=== PATIENT | female | born 1980 | race African-American/Black ===

== ENCOUNTER 2019-06-22 18:34 | Emergency (ER) | payer MEDICAID ==
[~2019-06-22] VITALS: Ht 160 cm; Wt 69.1 kg
[2019-06-22] MEDS ORDERED: ACETAMINOPHEN 500 MG TABLET PO ONE (19:15)
[2019-06-22] MEDS ORDERED: cloNIDine HCL 0.1 MG TABLET PO ONE ×2 (19:15→20:00)
[2019-06-22] MEDS ORDERED: LABE100T5 PO (19:58)
[2019-06-22 20:05] VITALS: BP 153/97
--- NOTE | 2019-06-22 22:31 | PHYS DOC ---
Past Medical History Past Medical History: Hypertension Past Surgical History: Smoking Status: Never Smoker Alcohol Use: None Adult General Chief Complaint Chief Complaint: HYPERTENSION HPI HPI Patient is a 38 year old female with history of hypertension who presents with trauma headache for the past 2 days with elevated blood pressure 190s over 100 after running out of her home blood pressure medication 3 days ago. Patient is prescribed labetalol 100 mg twice daily. Headache is described as dull, low- grade it is not worse headache of the patient's life. Did not start abruptly. Patient denies neck pain, stiffness. Chest pain, palpitations, shortness of breath, extremity weakness, loss of sensation, increased leg swelling. No fevers chills or sweats. No nausea or vomiting. No other acute symptoms or complaints. [] Review of Systems Review of Systems ROS as per HPI All other systems were reviewed and found to be within normal limits, except as documented in this note. Current Medications Current Medications Current Medications Medications (Trade) Dose Ordered Sig/Sher Start Time Stop Time Status Last Admin Dose Admin Acetaminophen (Tylenol) 1,000 mg 1X ONCE 06/22/19 19:15 06/22/19 19:16 DC 06/22/19 19:14 1,000 MG Clonidine HCl (Catapres) 0.1 mg 1X ONCE 06/22/19 20:00 06/22/19 20:01 DC 06/22/19 20:05 0.1 MG Allergies Allergies Allergies Coded Allergies Type Severity Reaction Last Updated Verified No Known Drug Allergies 06/22/19 No Physical Exam Physical Exam Constitutional: Well developed, well nourished, no acute distress. [] HENT: Normocephalic, atraumatic, bilateral external ears normal, oropharynx moist, nose normal. [] Eyes: PERRLA, EOMI, conjunctiva normal. [] Neck: Normal range of motion, no tenderness. [] Cardiovascular:Heart rate regular rhythm, no murmur [] Lungs & Thorax: Bilateral breath sounds clear to auscultation [] Abdomen: Bowel sounds normal. [] Skin: Warm, dry. [] Back: No tenderness. [] Extremities: No tenderness, no edema. [] Neurologic: Alert and oriented, normal motor function, normal sensory function, no focal deficits noted. [] Psychologic: Affect normal, judgement normal, mood normal. [] Current Patient Data Vital Signs Vital Signs Date Time Temp Pulse Resp B/P (MAP) Pulse Ox O2 Delivery O2 Flow Rate FiO2 06/22/19 20:05 85 153/97 06/22/19 19:47 99 06/22/19 19:02 98.6 18 Room Air 98.6 EKG EKG [] Radiology/Procedures Radiology/Procedures [] Course & Med Decision Making Course & Med Decision Making Pertinent Labs and Imaging studies reviewed. (See chart for details) [Blood pressure improved with treatment. Headache resolved with Tylenol. No neurologic deficits. No additional workup indicated at this time. Recommend PCP follow-up. Return precautions reviewed.] Dragon Disclaimer Dragon Disclaimer This electronic medical record was generated, in whole or in part, using a voice recognition dictation system. Departure Departure Impression: Primary Impression: Medication refill Additional Impressions: Headache Hypertension Disposition: 01 HOME, SELF-CARE Condition: GOOD Patient Instructions: Headache, FAQs, Hypertension Additional Instructions: Please fill blood pressure medication upon leaving the ED and take firts dose this evening upon returning home. Follow up with your PCP for further blood presseure management and re-evaluation of your headache. Return to the ED if new or worsening symptoms. Scripts Labetalol Hcl (LABETALOL HCL) 100 Mg Tablet 1 TAB PO BID, #60 TAB Prov: VERONICA PERRY DO 06/22/19 Problem Qualifiers VERONICA PERRY DO Jun 22, 2019 22:31
== END 2019-06-22 20:13 | disposition home or self-care (01) ==
LOC: ER 18:34
DX: I10 Essential (primary) hypertension (principal); R51 Headache; Z98.890 Other specified postprocedural states; Z76.0 Encounter for issue of repeat prescription
CPT/HCPCS: 99285